=== PATIENT | male | born 2000 | race Hispanic/Latino ===

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

== ENCOUNTER 2018-06-16 07:53 | Emergency (ER) | payer OTHER, SELFPAY | END 2018-06-16 08:44 | disposition home or self-care (01) | LOC: MADERS 07:53 | DX: B34.9 Viral infection, unspecified (principal) | CPT/HCPCS: 99283 ==

== ENCOUNTER 2021-05-17 19:21 | Emergency (ER) | payer OTHER, SELFPAY ==
[2021-05-18 18:22] LABS: SARS-CoV-2 PCR by NAA Not Detected (NotDetected)
== END 2021-05-17 20:53 | disposition home or self-care (01) ==
LOC: MADERS 19:21
DX: R51.9 Headache, unspecified (principal); R05.9 Cough, unspecified; R09.89 Other specified symptoms and signs involving the circulatory and respiratory systems; R68.83 Chills (without fever); Z20.822 Contact with and (suspected) exposure to COVID-19
CPT/HCPCS: 87804; 99284; U0003; U0005